=== PATIENT | male | born 1990 | race Hispanic/Latino ===

== ENCOUNTER 2020-07-06 12:10 | Emergency (ER) | payer OTHER ==
[~2020-07-06] VITALS: Ht 170.2 cm; Wt 131.5 kg
[2020-07-06] MEDS ORDERED: KETOROLAC TROMETHAMINE 30 MG/ML VIAL IV STA (12:27)
[2020-07-06] MEDS ORDERED: METHYLPREDNISOLONE SOD SUCC 125 MG/2ML VIAL IV ONE (12:30)
[2020-07-06] MEDS ORDERED: HYDROCODONE/APAP 10MG-325MG TAB PO ONE (12:30)
[2020-07-06] MEDS ORDERED: ULTRAM50 MG PO (14:15)
[2020-07-06] MEDS ORDERED: NAPROSYN500 MG PO (14:15)
[2020-07-06] MEDS ORDERED: CYCLOBENZAPRINE5 MG PO (14:15)
== END 2020-07-06 15:10 | disposition home or self-care (01) ==
LOC: ER 12:23
DX: M54.42 Lumbago with sciatica, left side (principal); G89.29 Other chronic pain
CPT/HCPCS: 99283; J1885; J2930

== ENCOUNTER 2020-08-20 09:07 | Emergency (ER) | payer SELFPAY ==
[~2020-08-20] VITALS: Ht 170.2 cm; Wt 113.4 kg
[~2020-08-20 09:07] MED LIST: CYCLOBENZAPRINE5 MG PO; NAPROSYN500 MG PO; ULTRAM50 MG PO
[2020-08-20] MEDS ORDERED: KETOROLAC TROMETHAMINE 60 MG/2 ML VIAL IM ONE (09:15)
[2020-08-20] MEDS ORDERED: DEXAMETHASONE SOD PHOS 10 MG/1 ML VIAL IM ONE (09:15)
[2020-08-20] MEDS ORDERED: HYDROCODONE/APAP 10MG-325MG TAB PO ONE (09:15)
[2020-08-20 09:38] VITALS: BP 133/76
== END 2020-08-20 09:40 | disposition home or self-care (01) ==
LOC: ER 09:15
DX: M54.41 Lumbago with sciatica, right side (principal); G89.29 Other chronic pain
CPT/HCPCS: 99283; J1100; J1885